=== PATIENT | male | born 1990 | race Caucasian/White ===

== ENCOUNTER 2021-06-19 21:20 | Inpatient (IN) | payer MEDICARE, MEDICAID ==
[~2021-06-19] VITALS: Ht 195.6 cm; Wt 81.0 kg
[~2021-06-19 21:20] MED LIST: GABA800T5 PO; SERT100T32 PO
--- NOTE | 2021-06-19 22:06 | NUR ---
LOOM OPERATOR APPRENTICE: PT. TO ROOM FROM LOBBY AT THIS TIME.
[2021-06-19] MEDS ORDERED: PROMETHAZINE 25 MG/ML, 1ML ONE (22:25)
[2021-06-19] MEDS ORDERED: ONDANSETRON 2MG/ML, 2ML ONE (22:25)
[2021-06-19] MEDS ORDERED: MORPHINE SULFATE 4 MG/ML, 1ML ONE (22:26)
[2021-06-19] MEDS ORDERED: PROMETHAZINE 25 MG/ML, 1ML IM ONE (22:30)
[2021-06-19] MEDS ORDERED: SODIUM CHLORIDE 0.9% 1,000ML IVBOLUS ONE (22:30)
[2021-06-19] MEDS ORDERED: MORPHINE SULFATE 4 MG/ML, 1ML IVPush PRN (22:30)
[2021-06-19] MEDS ORDERED: SODIUM CHLORIDE FLUSH 10ML SYR IVF ONE (22:30)
[2021-06-19] MEDS ORDERED: ONDANSETRON 2MG/ML, 2ML IVPush ONE (22:30)
--- NOTE | 2021-06-19 23:08 | NUR ---
PATIENT STATES HE NOTICED SCROTAL SWELLING THIS MORNING WHEN HE GOT OUT OF THE SHOWER AND STATED HE STARTED TO FEEL NAUSEATED AT THAT TIME. PATIENT HAS NOT HAD ANY APPITITE TO DAY.
[2021-06-19 23:28] LABS: BASOPHILS % (AUTO) 0 % (0-1); EOSINOPHILS % (AUTO) 0 % (1-7); LYMPHOCYTES % (AUTO) 4 % (22-44); MEAN CORPUSCULAR HEMOGLOBIN 27.8 pg (27.5-34.5); MEAN CORPUSCULAR HGB CONC 32.8 g/dL (33.2-36.2); MONOCYTES % (AUTO) 7 % (2-9); NEUTROPHILS % (AUTO) 89 % (42-75); PLATELET COUNT 242 x10^3/uL (130-400); RED BLOOD COUNT 4.73 x10^6/uL (4.38-5.82); RED CELL DISTRIBUTION WIDTH 12.9 % (9.4-14.8)
[2021-06-19 23:41] LABS: ALANINE AMINOTRANSFERASE 16 U/L (12-78); ALBUMIN 2.5 g/dL (3.4-5.0); ANION GAP 5 mmol/L (5-15); CALCIUM 8.5 mg/dL (8.5-10.1); CHLORIDE 105 mmol/L (98-107); CREATININE 0.55 mg/dL (0.7-1.3)
[2021-06-19 23:43] LABS: ALKALINE PHOSPHATASE 104 U/L (45-117); BILIRUBIN,TOTAL 1.2 mg/dL (0.2-1.0); TOTAL PROTEIN 8.1 g/dL (6.4-8.2)
[2021-06-20] MEDS ORDERED: CEFTRIAXONE 1,000 MG in DEXTROSE 5% 50 ML IVPB SCH (00:30)
[2021-06-20] MEDS ORDERED: VANCOMYCIN PER PHARMACY MC PRN ×3 (00:30→18:00)
--- NOTE | 2021-06-20 00:40 | NUR ---
Patient has catheter in place to obtain urine. Unable to get any urine out at this time. Catheter remains in place.
[2021-06-20] MEDS ORDERED: SODIUM CHLORIDE 0.9% 1,000ML IVBOLUS ONE (01:00)
[2021-06-20] MEDS ORDERED: PHARMACOKINETIC CONSULTATION MC ONE (01:00)
--- NOTE | 2021-06-20 01:00 | NUR ---
Preceptor RN: Still unable to get urine from catheter. Notified ERP. Second liter of NS ordered. Upon checking IV, first liter bolus of NS did not infuse due to patient's arm position. Advised patient to keep arm straight. Second bolus held until the first completes. Initiated antibiotics per jan. Notifed primary RN.
[2021-06-20] MEDS ORDERED: VANCOMYCIN 1,800 MG in SODIUM CHLORIDE 0.9% 250 ML IV ONE (01:30)
--- NOTE | 2021-06-20 02:03 | NUR ---
PATIENT SLEEPING ON GURNEY WHEN RN ENTERED ROOM. PATIENT STILL UNABLE TO PRODUCE URINE. BOLUS RUNNING, AND REMINDED PATIENT TO KEEP HIS ARM STRAIGHT. PATIENT PLACED ON 2L OXYGEN VIA NC DUE TO O2 SATS DROPPING WHEN PT IS ASLEEP.
--- NOTE | 2021-06-20 02:15 | NUR ---
Pt to be admitted to MED/SURG, room 444. Report called to ROCHELLE.
[2021-06-20] MEDS ORDERED: ACETAMINOPHEN 325 MG TABLET PO PRN (02:30)
[2021-06-20] MEDS ORDERED: ENALAPRILAT 1.25 MG/ML, 2ML IVPush PRN (02:30)
[2021-06-20] MEDS ORDERED: GABAPENTIN 300 MG CAPSULE PO PRN (02:30)
[2021-06-20] MEDS ORDERED: SODIUM CHLORIDE 0.9% 1,000ML IV ONE (02:30)
[2021-06-20 03:03] VITALS: BP 100/62
[2021-06-20 03:53] LABS: RED BLOOD COUNT 4.33 x10^6/uL (4.38-5.82)
[2021-06-20 03:54] LABS: MEAN CORPUSCULAR HEMOGLOBIN 28.1 pg (27.5-34.5); MEAN CORPUSCULAR HGB CONC 33.1 g/dL (33.2-36.2); MEAN PLATELET VOLUME 9.2 fL (7.4-10.4); PLATELET COUNT 245 x10^3/uL (130-400)
[2021-06-20 04:06] LABS: ANION GAP 6 mmol/L (5-15); CALCIUM 8.2 mg/dL (8.5-10.1); CHLORIDE 104 mmol/L (98-107); CREATININE 0.46 mg/dL (0.7-1.3)
[2021-06-20 04:12] LABS: MICROSCOPIC INDICATED
[2021-06-20 04:20] LABS: BAND#(MANUAL) 0.55 x10^3/uL; BANDS%(MANUAL) 3 % (0-7); LYMPH#(MANUAL) 1.64 x10^3/uL (1-3.4); LYMPHS% (MANUAL) 9 % (22-44); MONOS#(MANUAL) 0.91 x10^3/uL (0.3-2.7); MONOS% (MANUAL) 5 % (2-9); SEG#(MANUAL) 15.11 x10^3/uL (1.8-6.8); SEGS% (MANUAL) 83 % (42-75)
[2021-06-20 04:21] LABS: <PLATELET ESTIMATE> ADEQUATE; <PLT MORPHOLOGY> NORMAL PLT MORPH; <RBC MORPHOLOGY> NORMAL
[2021-06-20] MEDS: ENOXAPARIN 40 MG/0.4 ML SQ SCH (05:12)
[2021-06-20 07:20] VITALS: BP 98/60
[2021-06-20] MEDS: SODIUM CHLORIDE 0.9% 1,000 ML IV SCH ×2 (08:27→12:13)
[2021-06-20] MEDS: ONDANSETRON 2MG/ML, 2ML IVPush PRN (08:27)
[2021-06-20] MEDS: morphine SULFATE 10 MG/ML, 1ML IV PRN ×3 (08:28→21:35)
[2021-06-20] MEDS ORDERED: POTASSIUM CHLORIDE 20 MEQ TAB.ER.PRT PO ONE (09:30)
[2021-06-20] MEDS: NICOTINE 14MG/24 HR PATCH.TD24 TD SCH (12:12)
[2021-06-20 13:32] VITALS: BP 98/61
[2021-06-20] MEDS ORDERED: PHARMACOKINETIC MONITORING MC PRN (18:00)
[2021-06-20] MEDS: PIPERACILLIN/TAZO 3.375 GM in DEXTROSE 5% 50 ML IV SCH (18:22)
[2021-06-20 19:51] VITALS: BP 114/61
[2021-06-20] MEDS: VANCOMYCIN 1,500 MG in SODIUM CHLORIDE 0.9% 250 ML IV SCH (19:58)
[2021-06-21] MEDS: PIPERACILLIN/TAZO 3.375 GM in DEXTROSE 5% 50 ML IV SCH ×4 (00:27→17:44)
[2021-06-21] MEDS: OXYcodone IR 5MG TABLET PO PRN ×4 (00:47→21:58)
[2021-06-21] MEDS ORDERED: CEFTRIAXONE 1,000 MG in DEXTROSE 5% 50 ML IVPB SCH (01:00)
[2021-06-21 02:01] VITALS: BP 99/60
[2021-06-21] MEDS: ENOXAPARIN 40 MG/0.4 ML SQ SCH (04:16)
[2021-06-21] MEDS: VANCOMYCIN 1,500 MG in SODIUM CHLORIDE 0.9% 250 ML IV SCH ×3 (04:16→19:52)
[2021-06-21 07:40] VITALS: BP 98/57
[2021-06-21 07:49] LABS: BASOPHILS % (AUTO) 0 % (0-1); EOSINOPHILS % (AUTO) 2 % (1-7); LYMPHOCYTES % (AUTO) 10 % (22-44); MEAN CORPUSCULAR HGB CONC 33.2 g/dL (33.2-36.2); MEAN PLATELET VOLUME 8.7 fL (7.4-10.4); MONOCYTES % (AUTO) 8 % (2-9); NEUTROPHILS % (AUTO) 80 % (42-75); PLATELET COUNT 201 x10^3/uL (130-400); RED BLOOD COUNT 4.12 x10^6/uL (4.38-5.82); RED CELL DISTRIBUTION WIDTH 13.2 % (9.4-14.8)
[2021-06-21 07:57] LABS: ANION GAP 10 mmol/L (5-15); CALCIUM 8.8 mg/dL (8.5-10.1); CHLORIDE 105 mmol/L (98-107)
[2021-06-21 08:06] LABS: C-REACTIVE PROTEIN, QUANT > 19.00 mg/dL (0.02-0.49); CREATININE 0.49 mg/dL (0.7-1.3)
[2021-06-21 08:25] LABS: HCT (SEDRATE) 34.8 % (39.2-51.8)
[2021-06-21] MEDS ORDERED: POTASSIUM PHOSPHATE 22 MEQ in SODIUM CHLORIDE 0.9% 500 ML IV ONE (10:00)
[2021-06-21] MEDS: morphine SULFATE 10 MG/ML, 1ML IV PRN ×2 (10:03→19:52)
[2021-06-21] MEDS: NICOTINE 14MG/24 HR PATCH.TD24 TD SCH (11:35)
[2021-06-21 13:40] VITALS: BP 103/65
[2021-06-21 19:56] VITALS: BP 101/57
[2021-06-22] MEDS: PIPERACILLIN/TAZO 3.375 GM in DEXTROSE 5% 50 ML IV SCH ×5 (00:36→23:50)
[2021-06-22 01:00] VITALS: BP 107/65
[2021-06-22] MEDS: morphine SULFATE 10 MG/ML, 1ML IV PRN ×5 (01:13→16:21)
[2021-06-22 03:19] LABS: BASOPHILS % (AUTO) 0 % (0-1); EOSINOPHILS % (AUTO) 1 % (1-7); LYMPHOCYTES % (AUTO) 7 % (22-44); MEAN CORPUSCULAR HEMOGLOBIN 27.9 pg (27.5-34.5); MEAN CORPUSCULAR HGB CONC 33.3 g/dL (33.2-36.2); MEAN PLATELET VOLUME 8.7 fL (7.4-10.4); MONOCYTES % (AUTO) 8 % (2-9); NEUTROPHILS % (AUTO) 85 % (42-75); PLATELET COUNT 194 x10^3/uL (130-400); RED BLOOD COUNT 4.07 x10^6/uL (4.38-5.82); RED CELL DISTRIBUTION WIDTH 13.3 % (9.4-14.8)
[2021-06-22] MEDS: VANCOMYCIN 1,500 MG in SODIUM CHLORIDE 0.9% 250 ML IV SCH ×3 (03:28→20:34)
[2021-06-22] MEDS ORDERED: MELATONIN 5 MG TABLET PO PRN (03:30)
[2021-06-22 03:31] LABS: ANION GAP 9 mmol/L (5-15); CALCIUM 8.9 mg/dL (8.5-10.1); CHLORIDE 102 mmol/L (98-107); CREATININE 0.59 mg/dL (0.7-1.3)
[2021-06-22 03:32] LABS: VANCOMYCIN,TROUGH 18.4 mcg/mL (5.0-10.0)
[2021-06-22] MEDS: ENOXAPARIN 40 MG/0.4 ML SQ SCH (05:36)
[2021-06-22 07:16] VITALS: BP 103/62
[2021-06-22] MEDS ORDERED: POTASSIUM CHLORIDE 40 MEQ in SODIUM CHLORIDE 0.9% 500 ML IV ONE (08:30)
[2021-06-22] MEDS ORDERED: MAGNESIUM SULFATE PMX 2GM/50ML 50 ML IV ONE (08:30)
[2021-06-22] MEDS: NICOTINE 14MG/24 HR PATCH.TD24 TD SCH (12:12)
[2021-06-22] MEDS ORDERED: POTASSIUM PHOSPHATE 22 MEQ in SODIUM CHLORIDE 0.9% 500 ML IV ONE (12:30)
[2021-06-22] MEDS ORDERED: KETOROLAC 30 MG/1 ML IVPush ONE (13:00)
[2021-06-22 14:08] VITALS: BP 98/62
[2021-06-22] MEDS: OXYcodone IR 5MG TABLET PO PRN (19:36)
[2021-06-22 19:57] VITALS: BP 94/58
[2021-06-23 00:04] VITALS: BP 96/60
[2021-06-23] MEDS: OXYcodone IR 5MG TABLET PO PRN ×4 (00:11→20:31)
[2021-06-23] MEDS: VANCOMYCIN 1,500 MG in SODIUM CHLORIDE 0.9% 250 ML IV SCH (04:29)
[2021-06-23 05:34] LABS: BASOPHILS % (AUTO) 0 % (0-1); EOSINOPHILS % (AUTO) 4 % (1-7); LYMPHOCYTES % (AUTO) 10 % (22-44); MEAN CORPUSCULAR HEMOGLOBIN 28.3 pg (27.5-34.5); MEAN CORPUSCULAR HGB CONC 33.9 g/dL (33.2-36.2); MEAN PLATELET VOLUME 8.9 fL (7.4-10.4); MONOCYTES % (AUTO) 12 % (2-9); NEUTROPHILS % (AUTO) 74 % (42-75); PLATELET COUNT 205 x10^3/uL (130-400); RED BLOOD COUNT 4.02 x10^6/uL (4.38-5.82); RED CELL DISTRIBUTION WIDTH 13.1 % (9.4-14.8)
[2021-06-23 05:46] LABS: CHLORIDE 105 mmol/L (98-107)
[2021-06-23 05:51] LABS: ANION GAP 7 mmol/L (5-15); CALCIUM 9.3 mg/dL (8.5-10.1); CREATININE 1.55 mg/dL (0.7-1.3)
[2021-06-23] MEDS: ENOXAPARIN 40 MG/0.4 ML SQ SCH (05:54)
[2021-06-23 07:00] VITALS: BP 93/52
[2021-06-23] MEDS: ONDANSETRON 2MG/ML, 2ML IVPush PRN (08:46)
[2021-06-23] MEDS: morphine SULFATE 10 MG/ML, 1ML IV PRN ×2 (09:45→10:32)
[2021-06-23] MEDS: AMPICILLIN/SULBACTAM 3 GM in SODIUM CHLORIDE 0.9% 100 ML IV SCH ×3 (09:46→22:22)
[2021-06-23] MEDS: NICOTINE 14MG/24 HR PATCH.TD24 TD SCH (10:32)
[2021-06-23 12:50] VITALS: BP 97/61
[2021-06-23 19:26] VITALS: BP 99/61
[2021-06-24] MEDS: OXYcodone IR 5MG TABLET PO PRN ×4 (00:41→22:45)
[2021-06-24 00:46] VITALS: BP 99/63
[2021-06-24] MEDS: ENOXAPARIN 40 MG/0.4 ML SQ SCH (05:15)
[2021-06-24] MEDS: AMPICILLIN/SULBACTAM 3 GM in SODIUM CHLORIDE 0.9% 100 ML IV SCH (05:15)
[2021-06-24 05:27] LABS: BASOPHILS % (AUTO) 1 % (0-1); EOSINOPHILS % (AUTO) 4 % (1-7); LYMPHOCYTES % (AUTO) 10 % (22-44); MEAN CORPUSCULAR HEMOGLOBIN 27.8 pg (27.5-34.5); MEAN CORPUSCULAR HGB CONC 32.8 g/dL (33.2-36.2); MONOCYTES % (AUTO) 13 % (2-9); NEUTROPHILS % (AUTO) 73 % (42-75); PLATELET COUNT 235 x10^3/uL (130-400); RED BLOOD COUNT 4.12 x10^6/uL (4.38-5.82); RED CELL DISTRIBUTION WIDTH 13.2 % (9.4-14.8)
[2021-06-24] MEDS: ONDANSETRON 2MG/ML, 2ML IVPush PRN (05:31)
[2021-06-24 05:34] LABS: ANION GAP 7 mmol/L (5-15); CALCIUM 8.9 mg/dL (8.5-10.1); CHLORIDE 105 mmol/L (98-107); CREATININE 3.06 mg/dL (0.7-1.3)
[2021-06-24 07:42] VITALS: BP 94/51
[2021-06-24] MEDS ORDERED: SODIUM CHLORIDE 0.9%, 500ML IVBOLUS ONE (09:30)
[2021-06-24] MEDS: BISACODYL 10 MG SUPP PR PRN (09:49)
[2021-06-24] MEDS: HEPARIN 5,000 UNITS/ML, 1ML SQ SCH ×2 (09:50→18:15)
[2021-06-24] MEDS: PROMETHAZINE 25 MG/ML, 1ML IM PRN (10:10)
[2021-06-24] MEDS: ALBUMIN HUMAN 25% 100 ML IV SCH ×3 (11:28→21:30)
[2021-06-24 12:26] LABS: MICROSCOPIC INDICATED
[2021-06-24 12:35] LABS: SODIUM,URINE RANDOM 28 mmol/L
[2021-06-24 12:58] VITALS: BP 96/58
[2021-06-24 12:58] LABS: CREATININE,URINE RANDOM < 13.00 mg/dL
[2021-06-24] MEDS: CEFTRIAXONE 1,000 MG in DEXTROSE 5% 50 ML IVPB SCH (13:32)
[2021-06-24] MEDS: NICOTINE 14MG/24 HR PATCH.TD24 TD SCH (13:32)
[2021-06-24 22:06] VITALS: BP 108/67
[2021-06-25] MEDS: HEPARIN 5,000 UNITS/ML, 1ML SQ SCH ×3 (02:00→18:09)
[2021-06-25 02:31] VITALS: BP 103/61
[2021-06-25] MEDS: ALBUMIN HUMAN 25% 100 ML IV SCH ×2 (03:30→19:58)
[2021-06-25] MEDS: OXYcodone IR 5MG TABLET PO PRN ×4 (04:11→15:59)
[2021-06-25 07:11] VITALS: BP 118/67
[2021-06-25 07:20] LABS: CALCIUM 8.9 mg/dL (8.5-10.1); CHLORIDE 106 mmol/L (98-107)
[2021-06-25 07:24] LABS: ANION GAP 7 mmol/L (5-15); CREATININE 4.14 mg/dL (0.7-1.3)
[2021-06-25] MEDS: PROMETHAZINE 25 MG/ML, 1ML IM PRN (07:53)
[2021-06-25] MEDS ORDERED: SODIUM CHLORIDE 0.9%, 500ML IVBOLUS ONE (08:00)
[2021-06-25] MEDS: NICOTINE 14MG/24 HR PATCH.TD24 TD SCH (11:50)
[2021-06-25] MEDS: SODIUM CHLORIDE 0.9% 1,000 ML IV SCH ×2 (12:21→23:44)
[2021-06-25] MEDS: CEFTRIAXONE 1,000 MG in DEXTROSE 5% 50 ML IVPB SCH (12:23)
[2021-06-25 12:52] VITALS: BP 94/58
[2021-06-25] MEDS: ONDANSETRON 2MG/ML, 2ML IVPush PRN (15:59)
[2021-06-25 20:14] VITALS: BP 116/72
[2021-06-26] MEDS: ALBUMIN HUMAN 25% 100 ML IV SCH ×2 (01:33→08:46)
[2021-06-26 01:37] VITALS: BP 116/64
[2021-06-26] MEDS: HEPARIN 5,000 UNITS/ML, 1ML SQ SCH ×3 (02:20→18:17)
[2021-06-26] MEDS: NYSTATIN 500,000 UNITS/5 ML UDC PO SCH ×4 (05:43→21:56)
[2021-06-26] MEDS: OXYcodone IR 5MG TABLET PO PRN ×4 (05:43→21:56)
[2021-06-26] MEDS: ONDANSETRON 2MG/ML, 2ML IVPush PRN ×3 (05:44→19:54)
[2021-06-26 06:05] LABS: BASOPHILS % (AUTO) 1 % (0-1); EOSINOPHILS % (AUTO) 3 % (1-7); LYMPHOCYTES % (AUTO) 16 % (22-44); MEAN CORPUSCULAR HGB CONC 33.3 g/dL (33.2-36.2); MEAN PLATELET VOLUME 8.4 fL (7.4-10.4); MONOCYTES % (AUTO) 15 % (2-9); NEUTROPHILS % (AUTO) 66 % (42-75); PLATELET COUNT 268 x10^3/uL (130-400); RED BLOOD COUNT 3.75 x10^6/uL (4.38-5.82); RED CELL DISTRIBUTION WIDTH 13.2 % (9.4-14.8)
[2021-06-26 06:10] LABS: ALBUMIN 2.2 g/dL (3.4-5.0); ANION GAP 8 mmol/L (5-15); CALCIUM 8.9 mg/dL (8.5-10.1); CHLORIDE 109 mmol/L (98-107); CREATININE 4.47 mg/dL (0.7-1.3)
[2021-06-26] MEDS: SODIUM CHLORIDE 0.9% 1,000 ML IV SCH (11:18)
[2021-06-26] MEDS: CEFTRIAXONE 1,000 MG in DEXTROSE 5% 50 ML IVPB SCH (11:19)
[2021-06-26] MEDS: NICOTINE 14MG/24 HR PATCH.TD24 TD SCH (11:20)
[2021-06-26 12:50] VITALS: BP 119/66
[2021-06-26] MEDS: LACTATED RINGERS 1,000 ML IV SCH ×2 (12:54→23:10)
[2021-06-26] MEDS: PROMETHAZINE 25 MG/ML, 1ML IM PRN (15:23)
[2021-06-26 19:33] VITALS: BP 122/76
[2021-06-27 00:17] VITALS: BP 109/67
[2021-06-27] MEDS: OXYcodone IR 5MG TABLET PO PRN ×5 (02:02→19:52)
[2021-06-27] MEDS: HEPARIN 5,000 UNITS/ML, 1ML SQ SCH ×3 (02:04→16:24)
[2021-06-27] MEDS: NYSTATIN 500,000 UNITS/5 ML UDC PO SCH ×4 (05:50→19:47)
[2021-06-27] MEDS: ONDANSETRON 2MG/ML, 2ML IVPush PRN ×2 (06:20→19:44)
[2021-06-27 06:28] LABS: BASOPHILS % (AUTO) 0 % (0-1); EOSINOPHILS % (AUTO) 4 % (1-7); LYMPHOCYTES % (AUTO) 20 % (22-44); MEAN CORPUSCULAR HGB CONC 33.8 g/dL (33.2-36.2); MEAN PLATELET VOLUME 8.5 fL (7.4-10.4); MONOCYTES % (AUTO) 14 % (2-9); NEUTROPHILS % (AUTO) 62 % (42-75); PLATELET COUNT 319 x10^3/uL (130-400); RED BLOOD COUNT 4.01 x10^6/uL (4.38-5.82); RED CELL DISTRIBUTION WIDTH 13.4 % (9.4-14.8)
[2021-06-27 06:36] VITALS: BP 113/65
[2021-06-27 06:46] LABS: ANION GAP 8 mmol/L (5-15); CALCIUM 9.4 mg/dL (8.5-10.1); CHLORIDE 108 mmol/L (98-107); CREATININE 4.51 mg/dL (0.7-1.3)
[2021-06-27] MEDS: LACTATED RINGERS 1,000 ML IV SCH ×2 (10:12→10:29)
[2021-06-27] MEDS: CEFTRIAXONE 1,000 MG in DEXTROSE 5% 50 ML IVPB SCH (10:13)
[2021-06-27] MEDS: NICOTINE 14MG/24 HR PATCH.TD24 TD SCH (10:14)
[2021-06-27] MEDS: PROMETHAZINE 25 MG/ML, 1ML IM PRN (11:43)
[2021-06-27 13:05] VITALS: BP 118/75
[2021-06-27 18:59] VITALS: BP 121/74
[2021-06-27] MEDS: DOCUSATE 100 MG CAPSULE PO SCH (19:45)
[2021-06-28] MEDS: OXYcodone IR 5MG TABLET PO PRN ×4 (00:17→20:50)
[2021-06-28 00:47] VITALS: BP 106/68
[2021-06-28] MEDS: HEPARIN 5,000 UNITS/ML, 1ML SQ SCH ×3 (02:00→18:27)
[2021-06-28] MEDS: LACTATED RINGERS 1,000 ML IV SCH ×2 (02:28→20:49)
[2021-06-28] MEDS: NYSTATIN 500,000 UNITS/5 ML UDC PO SCH ×4 (06:06→20:50)
[2021-06-28] MEDS: ONDANSETRON 2MG/ML, 2ML IVPush PRN ×2 (06:06→20:50)
[2021-06-28 07:11] LABS: BASOPHILS % (AUTO) 1 % (0-1); EOSINOPHILS % (AUTO) 5 % (1-7); LYMPHOCYTES % (AUTO) 23 % (22-44); MEAN CORPUSCULAR HEMOGLOBIN 27.8 pg (27.5-34.5); MEAN CORPUSCULAR HGB CONC 33.3 g/dL (33.2-36.2); MEAN PLATELET VOLUME 8.4 fL (7.4-10.4); MONOCYTES % (AUTO) 15 % (2-9); NEUTROPHILS % (AUTO) 57 % (42-75); PLATELET COUNT 351 x10^3/uL (130-400); RED CELL DISTRIBUTION WIDTH 13.4 % (9.4-14.8)
[2021-06-28 07:13] VITALS: BP 124/62
[2021-06-28 07:15] LABS: ANION GAP 8 mmol/L (5-15); CALCIUM 9.2 mg/dL (8.5-10.1); CHLORIDE 109 mmol/L (98-107); CREATININE 4.25 mg/dL (0.7-1.3)
[2021-06-28] MEDS: PROMETHAZINE 25 MG/ML, 1ML IM PRN ×2 (07:50→22:49)
[2021-06-28] MEDS: DOCUSATE 100 MG CAPSULE PO SCH ×2 (09:00→20:50)
[2021-06-28] MEDS: CEFTRIAXONE 1,000 MG in DEXTROSE 5% 50 ML IVPB SCH (11:42)
[2021-06-28] MEDS: NICOTINE 14MG/24 HR PATCH.TD24 TD SCH (11:43)
[2021-06-28 12:07] VITALS: BP 129/77
[2021-06-28] MEDS ORDERED: PROCHLORPERAZINE 10MG TABLET PO PRN (13:30)
[2021-06-28] MEDS: BISACODYL 10 MG SUPP PR PRN (14:32)
[2021-06-28] MEDS ORDERED: GABAPENTIN 300 MG CAPSULE PO PRN (20:00)
[2021-06-28 20:13] VITALS: BP 132/80
[2021-06-28] MEDS: morphine SULFATE 10 MG/ML, 1ML IV PRN (22:50)
[2021-06-29 02:17] VITALS: BP 134/79
[2021-06-29] MEDS: HEPARIN 5,000 UNITS/ML, 1ML SQ SCH ×4 (02:45→17:12)
[2021-06-29] MEDS: NYSTATIN 500,000 UNITS/5 ML UDC PO SCH ×5 (05:21→20:27)
[2021-06-29] MEDS: OXYcodone IR 5MG TABLET PO PRN ×3 (05:31→22:00)
[2021-06-29] MEDS: ONDANSETRON 2MG/ML, 2ML IVPush PRN ×4 (05:49→23:34)
[2021-06-29 07:33] LABS: BASOPHILS % (AUTO) 1 % (0-1); EOSINOPHILS % (AUTO) 5 % (1-7); LYMPHOCYTES % (AUTO) 21 % (22-44); MEAN CORPUSCULAR HEMOGLOBIN 27.4 pg (27.5-34.5); MEAN CORPUSCULAR HGB CONC 33.2 g/dL (33.2-36.2); MEAN PLATELET VOLUME 8.3 fL (7.4-10.4); MONOCYTES % (AUTO) 14 % (2-9); NEUTROPHILS % (AUTO) 60 % (42-75); PLATELET COUNT 361 x10^3/uL (130-400); RED BLOOD COUNT 3.97 x10^6/uL (4.38-5.82); RED CELL DISTRIBUTION WIDTH 13.6 % (9.4-14.8)
[2021-06-29 07:35] LABS: ANION GAP 6 mmol/L (5-15); CHLORIDE 109 mmol/L (98-107)
[2021-06-29 07:36] LABS: CREATININE 3.86 mg/dL (0.7-1.3)
[2021-06-29 09:59] VITALS: BP 119/72
[2021-06-29] MEDS: DOCUSATE 100 MG CAPSULE PO SCH ×2 (10:10→20:28)
[2021-06-29] MEDS: CEFTRIAXONE 1,000 MG in DEXTROSE 5% 50 ML IVPB SCH (10:12)
[2021-06-29] MEDS ORDERED: POTASSIUM CHLORIDE 20 MEQ TAB.ER.PRT PO ONE (10:30)
[2021-06-29] MEDS: PROMETHAZINE 25 MG/ML, 1ML IM PRN (10:58)
[2021-06-29] MEDS: NICOTINE 14MG/24 HR PATCH.TD24 TD SCH (12:03)
[2021-06-29] MEDS ORDERED: MAGNESIUM HYDROXIDE 8%, 30ML UDC PO PRN (13:00)
[2021-06-29] MEDS ORDERED: POLYETHYLENE GLYCOL 17 GM PACKET PO PRN (13:00)
[2021-06-29 15:37] VITALS: BP 145/65
[2021-06-29 21:24] VITALS: BP 137/72
[2021-06-29] MEDS: BISACODYL 10 MG SUPP PR PRN (22:26)
[2021-06-30] MEDS: HEPARIN 5,000 UNITS/ML, 1ML SQ SCH ×3 (01:31→18:10)
[2021-06-30 03:08] VITALS: BP 130/77
[2021-06-30 05:31] LABS: BASOPHILS % (AUTO) 1 % (0-1); EOSINOPHILS % (AUTO) 4 % (1-7); LYMPHOCYTES % (AUTO) 22 % (22-44); MEAN CORPUSCULAR HEMOGLOBIN 27.6 pg (27.5-34.5); MEAN CORPUSCULAR HGB CONC 33.5 g/dL (33.2-36.2); MEAN PLATELET VOLUME 8.1 fL (7.4-10.4); MONOCYTES % (AUTO) 11 % (2-9); NEUTROPHILS % (AUTO) 62 % (42-75); PLATELET COUNT 373 x10^3/uL (130-400); RED BLOOD COUNT 4.03 x10^6/uL (4.38-5.82); RED CELL DISTRIBUTION WIDTH 13.6 % (9.4-14.8)
[2021-06-30 05:45] LABS: ANION GAP 8 mmol/L (5-15); CALCIUM 9.4 mg/dL (8.5-10.1); CHLORIDE 109 mmol/L (98-107)
[2021-06-30 05:56] LABS: ALANINE AMINOTRANSFERASE 11 U/L (12-78); ALBUMIN 2.2 g/dL (3.4-5.0); ALKALINE PHOSPHATASE 66 U/L (45-117); BILIRUBIN,TOTAL 0.5 mg/dL (0.2-1.0); CREATININE 3.55 mg/dL (0.7-1.3); TOTAL PROTEIN 7.2 g/dL (6.4-8.2)
[2021-06-30] MEDS: NYSTATIN 500,000 UNITS/5 ML UDC PO SCH ×4 (06:00→22:09)
[2021-06-30 07:23] VITALS: BP 145/85
[2021-06-30] MEDS: DOCUSATE 100 MG CAPSULE PO SCH ×2 (09:01→19:20)
[2021-06-30] MEDS: CEFTRIAXONE 1,000 MG in DEXTROSE 5% 50 ML IVPB SCH (09:02)
[2021-06-30] MEDS: ONDANSETRON 2MG/ML, 2ML IVPush PRN ×2 (09:05→15:50)
[2021-06-30] MEDS: NICOTINE 14MG/24 HR PATCH.TD24 TD SCH (12:08)
[2021-06-30] MEDS: SODIUM CHLORIDE 0.9% 1,000 ML IV SCH ×2 (12:30→22:09)
[2021-06-30] MEDS: PANTOPRAZOLE 40 MG IV IVPush SCH (12:37)
[2021-06-30 13:05] VITALS: BP 127/77
[2021-06-30] MEDS: PROMETHAZINE 25 MG/ML, 1ML IM PRN (14:22)
[2021-06-30 21:51] VITALS: BP 159/96
[2021-07-01] MEDS: PANTOPRAZOLE 40 MG IV IVPush SCH (00:27)
[2021-07-01] MEDS: HEPARIN 5,000 UNITS/ML, 1ML SQ SCH ×2 (02:00→10:06)
[2021-07-01 02:11] VITALS: BP 144/82
[2021-07-01] MEDS: ONDANSETRON 2MG/ML, 2ML IVPush PRN ×3 (04:37→18:50)
[2021-07-01 04:44] LABS: BASOPHILS % (AUTO) 1 % (0-1); EOSINOPHILS % (AUTO) 4 % (1-7); LYMPHOCYTES % (AUTO) 24 % (22-44); MEAN CORPUSCULAR HEMOGLOBIN 27.8 pg (27.5-34.5); MEAN CORPUSCULAR HGB CONC 33.1 g/dL (33.2-36.2); MEAN PLATELET VOLUME 8.2 fL (7.4-10.4); MONOCYTES % (AUTO) 11 % (2-9); NEUTROPHILS % (AUTO) 60 % (42-75); PLATELET COUNT 360 x10^3/uL (130-400); RED BLOOD COUNT 4.13 x10^6/uL (4.38-5.82); RED CELL DISTRIBUTION WIDTH 13.5 % (9.4-14.8)
[2021-07-01 04:51] LABS: ALANINE AMINOTRANSFERASE 10 U/L (12-78); ALBUMIN 2.2 g/dL (3.4-5.0); ANION GAP 10 mmol/L (5-15); CALCIUM 8.8 mg/dL (8.5-10.1); CHLORIDE 109 mmol/L (98-107); CREATININE 2.94 mg/dL (0.7-1.3)
[2021-07-01 04:53] LABS: ALKALINE PHOSPHATASE 65 U/L (45-117); BILIRUBIN,TOTAL 0.4 mg/dL (0.2-1.0); TOTAL PROTEIN 7.3 g/dL (6.4-8.2)
[2021-07-01] MEDS: NYSTATIN 500,000 UNITS/5 ML UDC PO SCH ×4 (06:00→21:15)
[2021-07-01] MEDS ORDERED: GADOTERATE 10 MMOL/20ML SYR ONE (07:54)
[2021-07-01 08:00] VITALS: BP 155/87
[2021-07-01] MEDS: DOCUSATE 100 MG CAPSULE PO SCH ×2 (10:03→21:15)
[2021-07-01] MEDS: SUCRALFATE 1 GM/10 ML UDC PO SCH ×3 (10:03→21:14)
[2021-07-01] MEDS: NICOTINE 14MG/24 HR PATCH.TD24 TD SCH (10:03)
[2021-07-01] MEDS: CEFTRIAXONE 1,000 MG in DEXTROSE 5% 50 ML IVPB SCH (10:05)
[2021-07-01] MEDS: MORPHINE SULFATE 4 MG/ML, 1ML IVPush PRN ×4 (11:41→22:53)
[2021-07-01] MEDS ORDERED: FENTANYL PF 100 MCG/2ML ONE (12:55)
[2021-07-01] MEDS ORDERED: MIDAZOLAM 1 MG/ML, 2ML ONE (12:56)
[2021-07-01 13:15] LABS: MICROSCOPIC AUTO
[2021-07-01 13:48] LABS: HCT (SEDRATE) 35.7 % (39.2-51.8)
[2021-07-01 14:02] LABS: TROPONIN I < 0.015 ng/mL (0.000-0.045)
[2021-07-01] MEDS: CAPSAICIN CRM 0.075%, 60GM TP SCH ×3 (14:29→20:30)
[2021-07-01] MEDS ORDERED: HEPARIN 5,000 UNITS/ML, 1ML IV ONE (14:30)
[2021-07-01 14:38] VITALS: BP 148/81
[2021-07-01] MEDS: SODIUM CHLORIDE 0.9% 1,000 ML IV SCH (15:33)
[2021-07-01 16:45] LABS: BASOPHILS % (AUTO) 1 % (0-1); EOSINOPHILS % (AUTO) 0 % (1-7); LYMPHOCYTES % (AUTO) 9 % (22-44); MEAN CORPUSCULAR HEMOGLOBIN 27.6 pg (27.5-34.5); MEAN CORPUSCULAR HGB CONC 33.1 g/dL (33.2-36.2); MEAN PLATELET VOLUME 8.2 fL (7.4-10.4); MONOCYTES % (AUTO) 8 % (2-9); NEUTROPHILS % (AUTO) 82 % (42-75); PLATELET COUNT 357 x10^3/uL (130-400); RED BLOOD COUNT 4.19 x10^6/uL (4.38-5.82); RED CELL DISTRIBUTION WIDTH 13.6 % (9.4-14.8)
[2021-07-01] MEDS: HEPARIN 25,000 UNITS/250ML PMX 250 ML IV PRN (18:37)
[2021-07-01 19:17] VITALS: BP 133/80
[2021-07-02] MEDS ORDERED: HYDROcodone/APAP 5/325 TABLET PO PRN
[2021-07-02] MEDS: LORazepam 2 MG/ML, 1ML IVPush PRN ×6 (00:06→21:56)
[2021-07-02] MEDS: HEPARIN 5,000 UNITS/ML, 1ML IV PRN ×3 (01:02→13:42)
[2021-07-02 01:14] VITALS: BP 130/79
[2021-07-02] MEDS: CAPSAICIN CRM 0.075%, 60GM TP SCH ×4 (02:30→21:40)
[2021-07-02] MEDS: NYSTATIN 500,000 UNITS/5 ML UDC PO SCH ×4 (05:52→21:40)
[2021-07-02] MEDS: SUCRALFATE 1 GM/10 ML UDC PO SCH ×4 (07:31→21:56)
[2021-07-02] MEDS: DOCUSATE 100 MG CAPSULE PO SCH ×2 (07:31→21:40)
[2021-07-02] MEDS: MORPHINE SULFATE 4 MG/ML, 1ML IVPush PRN ×4 (07:31→17:35)
[2021-07-02 07:36] LABS: ANION GAP 12 mmol/L (5-15); CALCIUM 9.1 mg/dL (8.5-10.1); CHLORIDE 109 mmol/L (98-107); CREATININE 2.31 mg/dL (0.7-1.3); IRON LEVEL 16 mcg/dL (65-175)
[2021-07-02] MEDS: ONDANSETRON 2MG/ML, 2ML IVPush PRN (07:38)
[2021-07-02 07:41] LABS: % IRON SATURATION 10 % (20-55); TOTAL IRON BINDING CAPACITY 156 mcg/dL (250-450)
[2021-07-02 08:35] VITALS: BP 137/82
[2021-07-02] MEDS: CEFTRIAXONE 1,000 MG in DEXTROSE 5% 50 ML IVPB SCH (09:54)
[2021-07-02] MEDS: NICOTINE 14MG/24 HR PATCH.TD24 TD SCH (10:29)
[2021-07-02] MEDS ORDERED: morphine SULFATE 10 MG/ML, 1ML IVPush ONE (12:15)
[2021-07-02] MEDS: HEPARIN 25,000 UNITS/250ML PMX 250 ML IV PRN (12:19)
[2021-07-02 14:25] VITALS: BP 158/98
[2021-07-02] MEDS: IRON SUCROSE COMPLEX 100MG/5ML IV SCH (14:34)
[2021-07-02] MEDS: SODIUM CHLORIDE 0.9% 1,000 ML IV SCH (15:47)
[2021-07-02 17:25] VITALS: BP 152/96
[2021-07-02 19:43] VITALS: BP 150/90
[2021-07-03 01:42] VITALS: BP 119/70
[2021-07-03] MEDS: SODIUM CHLORIDE 0.9% 1,000 ML IV SCH ×2 (02:21→13:55)
[2021-07-03] MEDS: MORPHINE SULFATE 4 MG/ML, 1ML IVPush PRN ×4 (02:26→20:22)
[2021-07-03] MEDS: ONDANSETRON 2MG/ML, 2ML IVPush PRN ×2 (02:26→15:54)
[2021-07-03] MEDS: CAPSAICIN CRM 0.075%, 60GM TP SCH ×4 (02:30→19:25)
[2021-07-03] MEDS: LORazepam 2 MG/ML, 1ML IVPush PRN ×2 (04:41→20:22)
[2021-07-03 04:52] LABS: BASOPHILS % (AUTO) 1 % (0-1); EOSINOPHILS % (AUTO) 2 % (1-7); LYMPHOCYTES % (AUTO) 11 % (22-44); MEAN CORPUSCULAR HEMOGLOBIN 27.3 pg (27.5-34.5); MEAN CORPUSCULAR HGB CONC 33.1 g/dL (33.2-36.2); MEAN PLATELET VOLUME 8.1 fL (7.4-10.4); MONOCYTES % (AUTO) 12 % (2-9); NEUTROPHILS % (AUTO) 75 % (42-75); PLATELET COUNT 284 x10^3/uL (130-400); RED BLOOD COUNT 3.83 x10^6/uL (4.38-5.82); RED CELL DISTRIBUTION WIDTH 13.7 % (9.4-14.8)
[2021-07-03 04:56] LABS: ALBUMIN 2.1 g/dL (3.4-5.0); ANION GAP 6 mmol/L (5-15); CALCIUM 8.9 mg/dL (8.5-10.1); CHLORIDE 110 mmol/L (98-107); CREATININE 1.75 mg/dL (0.7-1.3)
[2021-07-03] MEDS: NYSTATIN 500,000 UNITS/5 ML UDC PO SCH ×4 (06:21→19:25)
[2021-07-03] MEDS: SUCRALFATE 1 GM/10 ML UDC PO SCH ×4 (07:00→20:21)
[2021-07-03] MEDS: DOCUSATE 100 MG CAPSULE PO SCH ×2 (08:53→20:22)
[2021-07-03 08:54] VITALS: BP 116/75
[2021-07-03] MEDS ORDERED: LIDOCAINE 1%, 10ML ONE (10:05)
[2021-07-03] MEDS: CEFTRIAXONE 1,000 MG in DEXTROSE 5% 50 ML IVPB SCH (11:13)
[2021-07-03] MEDS: NICOTINE 14MG/24 HR PATCH.TD24 TD SCH (11:23)
[2021-07-03 13:51] VITALS: BP 127/80
[2021-07-03] MEDS: IRON SUCROSE COMPLEX 100MG/5ML IV SCH (15:35)
[2021-07-03] MEDS: NS + 20MEQ KCL 1,000 ML IV SCH (17:30)
[2021-07-03 19:36] VITALS: BP 127/83
[2021-07-04 01:46] VITALS: BP 114/68
[2021-07-04] MEDS: CAPSAICIN CRM 0.075%, 60GM TP SCH ×5 (02:30→20:17)
[2021-07-04] MEDS: NS + 20MEQ KCL 1,000 ML IV SCH (03:43)
[2021-07-04] MEDS: MORPHINE SULFATE 4 MG/ML, 1ML IVPush PRN ×3 (03:45→21:39)
[2021-07-04] MEDS: NYSTATIN 500,000 UNITS/5 ML UDC PO SCH ×5 (04:01→20:18)
[2021-07-04 04:03] LABS: BASOPHILS % (AUTO) 1 % (0-1); EOSINOPHILS % (AUTO) 4 % (1-7); LYMPHOCYTES % (AUTO) 19 % (22-44); MEAN CORPUSCULAR HEMOGLOBIN 27.7 pg (27.5-34.5); MEAN CORPUSCULAR HGB CONC 33.1 g/dL (33.2-36.2); MEAN PLATELET VOLUME 8.3 fL (7.4-10.4); MONOCYTES % (AUTO) 12 % (2-9); NEUTROPHILS % (AUTO) 65 % (42-75); PLATELET COUNT 265 x10^3/uL (130-400); RED BLOOD COUNT 3.92 x10^6/uL (4.38-5.82); RED CELL DISTRIBUTION WIDTH 14.1 % (9.4-14.8)
[2021-07-04 04:18] LABS: ANION GAP 5 mmol/L (5-15); CALCIUM 8.8 mg/dL (8.5-10.1); CHLORIDE 112 mmol/L (98-107)
[2021-07-04 04:21] LABS: ALKALINE PHOSPHATASE 72 U/L (45-117); BILIRUBIN,TOTAL 0.5 mg/dL (0.2-1.0); CREATININE 1.43 mg/dL (0.7-1.3); TOTAL PROTEIN 6.8 g/dL (6.4-8.2)
[2021-07-04 04:22] LABS: ALANINE AMINOTRANSFERASE < 6 U/L (12-78)
[2021-07-04] MEDS: SUCRALFATE 1 GM/10 ML UDC PO SCH ×4 (07:00→21:39)
[2021-07-04 07:58] VITALS: BP 125/83
[2021-07-04] MEDS: CEFTRIAXONE 1,000 MG in DEXTROSE 5% 50 ML IVPB SCH (09:59)
[2021-07-04] MEDS: DOCUSATE 100 MG CAPSULE PO SCH ×2 (09:59→20:18)
[2021-07-04] MEDS: NICOTINE 14MG/24 HR PATCH.TD24 TD SCH (10:00)
[2021-07-04 13:56] VITALS: BP 136/89
[2021-07-04] MEDS: ONDANSETRON 2MG/ML, 2ML IVPush PRN (14:18)
[2021-07-04] MEDS: IRON SUCROSE COMPLEX 100MG/5ML IV SCH (14:18)
[2021-07-04] MEDS ORDERED: NS + 20MEQ KCL 1,000 ML IV SCH (16:30)
[2021-07-04 19:16] VITALS: BP 137/91
[2021-07-04] MEDS: LORazepam 2 MG/ML, 1ML IVPush PRN (20:17)
[2021-07-05 00:23] VITALS: BP 118/78
[2021-07-05] MEDS: CAPSAICIN CRM 0.075%, 60GM TP SCH ×4 (01:49→20:15)
[2021-07-05] MEDS: NYSTATIN 500,000 UNITS/5 ML UDC PO SCH ×4 (05:40→21:00)
[2021-07-05 05:55] LABS: ALANINE AMINOTRANSFERASE 8 U/L (12-78); ANION GAP 4 mmol/L (5-15); CALCIUM 9.2 mg/dL (8.5-10.1); CHLORIDE 110 mmol/L (98-107); CREATININE 1.22 mg/dL (0.7-1.3)
[2021-07-05 05:58] LABS: ALKALINE PHOSPHATASE 68 U/L (45-117); BILIRUBIN,TOTAL 0.4 mg/dL (0.2-1.0); TOTAL PROTEIN 7.2 g/dL (6.4-8.2)
[2021-07-05 07:54] VITALS: BP 127/84
[2021-07-05] MEDS: NS + 40MEQ KCL 1,000 ML IV SCH ×2 (08:44→23:28)
[2021-07-05] MEDS: SUCRALFATE 1 GM/10 ML UDC PO SCH ×4 (08:44→20:15)
[2021-07-05] MEDS: DOCUSATE 100 MG CAPSULE PO SCH ×2 (08:45→20:15)
[2021-07-05] MEDS: ONDANSETRON 2MG/ML, 2ML IVPush PRN (08:56)
[2021-07-05] MEDS: MORPHINE SULFATE 4 MG/ML, 1ML IVPush PRN ×3 (08:59→20:15)
[2021-07-05] MEDS: CEFTRIAXONE 1,000 MG in DEXTROSE 5% 50 ML IVPB SCH (10:13)
[2021-07-05] MEDS: NICOTINE 14MG/24 HR PATCH.TD24 TD SCH (12:12)
[2021-07-05] MEDS: PROMETHAZINE 25 MG/ML, 1ML IM PRN (12:17)
[2021-07-05] MEDS: IRON SUCROSE COMPLEX 100MG/5ML IV SCH (14:21)
[2021-07-05 14:29] VITALS: BP 145/81
[2021-07-05] MEDS ORDERED: OXYcodone 5 MG/5 ML ORAL.SOL UDC PO PRN (16:30)
[2021-07-05] MEDS ORDERED: HYDROmorphone 1 MG/ML, 1ML INJ IVPush PRN (16:30)
[2021-07-05] MEDS ORDERED: PROMETHAZINE 25 MG/ML, 1ML IVPush PRN (16:30)
[2021-07-05] MEDS ORDERED: MEPERIDINE/PF 25MG/0.5ML IVPush PRN (16:30)
[2021-07-05] MEDS ORDERED: ONDANSETRON 2MG/ML, 2ML IVPush PRN (16:30)
[2021-07-05] MEDS ORDERED: FENTANYL PF 100 MCG/2ML IV PRN (16:30)
[2021-07-05] MEDS ORDERED: HYDROcodone/APAP 7.5-325MG/15ML UDC PO PRN (16:30)
[2021-07-05] MEDS ORDERED: CHLORHEXIDINE 15 ML UDC ONE (16:55)
[2021-07-05] MEDS ORDERED: CHLORHEXIDINE 15 ML UDC PO ONE (17:00)
[2021-07-05] MEDS ORDERED: MIDAZOLAM 1 MG/ML, 2ML ONE (17:06)
[2021-07-05] MEDS ORDERED: FENTANYL PF 100 MCG/2ML ONE ×2 (17:07→18:55)
[2021-07-05] MEDS ORDERED: BUPIVACAINE/PF 0.25% ONE (17:09)
[2021-07-05] MEDS ORDERED: PROPOFOL 10 MG/ML, 20ML ONE (17:36)
[2021-07-05] MEDS ORDERED: ONDANSETRON 2MG/ML, 2ML ONE (17:36)
[2021-07-05] MEDS ORDERED: HYDROcodone/APAP 7.5-325MG/15ML UDC ONE (18:39)
[2021-07-05 20:00] VITALS: BP 144/82
[2021-07-05 21:25] VITALS: BP 151/91
[2021-07-06 00:04] VITALS: BP 122/77
[2021-07-06] MEDS: CAPSAICIN CRM 0.075%, 60GM TP SCH ×4 (02:30→20:30)
[2021-07-06 04:23] VITALS: BP 121/80
[2021-07-06] MEDS: MORPHINE SULFATE 4 MG/ML, 1ML IVPush PRN ×4 (04:32→21:01)
[2021-07-06 04:42] LABS: BASOPHILS % (AUTO) 1 % (0-1); EOSINOPHILS % (AUTO) 6 % (1-7); LYMPHOCYTES % (AUTO) 28 % (22-44); MEAN CORPUSCULAR HEMOGLOBIN 27.2 pg (27.5-34.5); MEAN PLATELET VOLUME 8.6 fL (7.4-10.4); MONOCYTES % (AUTO) 11 % (2-9); NEUTROPHILS % (AUTO) 55 % (42-75); PLATELET COUNT 258 x10^3/uL (130-400); RED BLOOD COUNT 3.91 x10^6/uL (4.38-5.82); RED CELL DISTRIBUTION WIDTH 13.4 % (9.4-14.8)
[2021-07-06 04:45] LABS: ALBUMIN 2.1 g/dL (3.4-5.0); ANION GAP 4 mmol/L (5-15); CALCIUM 8.8 mg/dL (8.5-10.1); CHLORIDE 111 mmol/L (98-107)
[2021-07-06 04:47] LABS: CREATININE 1.08 mg/dL (0.7-1.3)
[2021-07-06] MEDS: NYSTATIN 500,000 UNITS/5 ML UDC PO SCH ×4 (06:00→21:00)
[2021-07-06] MEDS: SUCRALFATE 1 GM/10 ML UDC PO SCH ×4 (06:02→21:00)
[2021-07-06 09:20] VITALS: BP 151/96
[2021-07-06] MEDS: DOCUSATE 100 MG CAPSULE PO SCH ×2 (10:01→21:00)
[2021-07-06] MEDS: NICOTINE 14MG/24 HR PATCH.TD24 TD SCH (10:02)
[2021-07-06] MEDS: ONDANSETRON 2MG/ML, 2ML IVPush PRN ×3 (10:02→22:25)
[2021-07-06] MEDS: CEFTRIAXONE 1,000 MG in DEXTROSE 5% 50 ML IVPB SCH (11:39)
[2021-07-06] MEDS: NS + 40MEQ KCL 1,000 ML IV SCH (11:40)
[2021-07-06 15:46] VITALS: BP 158/97
[2021-07-06] MEDS: IRON SUCROSE COMPLEX 100MG/5ML IV SCH (16:02)
[2021-07-06 21:48] VITALS: BP 143/92
[2021-07-06 22:26] VITALS: BP 147/88
[2021-07-07] MEDS: PROMETHAZINE 25 MG/ML, 1ML IM PRN (00:08)
[2021-07-07] MEDS: CAPSAICIN CRM 0.075%, 60GM TP SCH ×4 (01:43→19:49)
[2021-07-07] MEDS: NS + 40MEQ KCL 1,000 ML IV SCH ×3 (01:43→23:23)
[2021-07-07] MEDS: NYSTATIN 500,000 UNITS/5 ML UDC PO SCH ×4 (01:43→19:50)
[2021-07-07 01:55] VITALS: BP 119/78
[2021-07-07 04:17] LABS: BASOPHILS % (AUTO) 1 % (0-1); EOSINOPHILS % (AUTO) 6 % (1-7); LYMPHOCYTES % (AUTO) 25 % (22-44); MEAN CORPUSCULAR HEMOGLOBIN 27.7 pg (27.5-34.5); MEAN CORPUSCULAR HGB CONC 33.7 g/dL (33.2-36.2); MEAN PLATELET VOLUME 8.7 fL (7.4-10.4); MONOCYTES % (AUTO) 9 % (2-9); NEUTROPHILS % (AUTO) 60 % (42-75); PLATELET COUNT 276 x10^3/uL (130-400); RED BLOOD COUNT 3.95 x10^6/uL (4.38-5.82); RED CELL DISTRIBUTION WIDTH 13.4 % (9.4-14.8)
[2021-07-07 04:21] LABS: ALBUMIN 2.2 g/dL (3.4-5.0); ANION GAP 3 mmol/L (5-15); CHLORIDE 110 mmol/L (98-107)
[2021-07-07 04:24] LABS: CREATININE 0.83 mg/dL (0.7-1.3)
[2021-07-07 04:25] LABS: ALANINE AMINOTRANSFERASE 8 U/L (12-78); ALKALINE PHOSPHATASE 63 U/L (45-117); BILIRUBIN,TOTAL 0.4 mg/dL (0.2-1.0); TOTAL PROTEIN 7.5 g/dL (6.4-8.2)
[2021-07-07] MEDS: SUCRALFATE 1 GM/10 ML UDC PO SCH ×4 (06:19→20:36)
[2021-07-07 10:08] VITALS: BP 155/96
[2021-07-07] MEDS: NICOTINE 14MG/24 HR PATCH.TD24 TD SCH (10:16)
[2021-07-07] MEDS: DOCUSATE 100 MG CAPSULE PO SCH ×2 (10:16→20:36)
[2021-07-07] MEDS: CEFTRIAXONE 1,000 MG in DEXTROSE 5% 50 ML IVPB SCH (10:16)
[2021-07-07] MEDS: ONDANSETRON 2MG/ML, 2ML IVPush PRN ×2 (12:59→18:24)
[2021-07-07] MEDS: MORPHINE SULFATE 4 MG/ML, 1ML IVPush PRN ×4 (12:59→21:40)
[2021-07-07 13:55] VITALS: BP 151/96
[2021-07-07 20:34] VITALS: BP 132/81
[2021-07-08] MEDS: CAPSAICIN CRM 0.075%, 60GM TP SCH ×4 (00:40→20:30)
[2021-07-08 00:50] VITALS: BP 147/87
[2021-07-08] MEDS: BISACODYL 10 MG SUPP PR PRN (04:54)
[2021-07-08] MEDS: NYSTATIN 500,000 UNITS/5 ML UDC PO SCH ×4 (05:16→20:32)
[2021-07-08 05:17] LABS: ALANINE AMINOTRANSFERASE 10 U/L (12-78); ALBUMIN 2.6 g/dL (3.4-5.0); ANION GAP 4 mmol/L (5-15); CALCIUM 9.3 mg/dL (8.5-10.1); CHLORIDE 109 mmol/L (98-107); CREATININE 0.78 mg/dL (0.7-1.3)
[2021-07-08 05:19] LABS: ALKALINE PHOSPHATASE 66 U/L (45-117); BILIRUBIN,TOTAL 0.4 mg/dL (0.2-1.0); TOTAL PROTEIN 7.8 g/dL (6.4-8.2)
[2021-07-08 05:21] LABS: BASOPHILS % (AUTO) 1 % (0-1); EOSINOPHILS % (AUTO) 6 % (1-7); LYMPHOCYTES % (AUTO) 29 % (22-44); MEAN CORPUSCULAR HEMOGLOBIN 27.3 pg (27.5-34.5); MEAN CORPUSCULAR HGB CONC 33.3 g/dL (33.2-36.2); MEAN PLATELET VOLUME 8.6 fL (7.4-10.4); MONOCYTES % (AUTO) 9 % (2-9); NEUTROPHILS % (AUTO) 55 % (42-75); PLATELET COUNT 283 x10^3/uL (130-400); RED BLOOD COUNT 4.19 x10^6/uL (4.38-5.82); RED CELL DISTRIBUTION WIDTH 13.4 % (9.4-14.8)
[2021-07-08] MEDS: SUCRALFATE 1 GM/10 ML UDC PO SCH ×4 (06:23→20:32)
[2021-07-08 07:32] VITALS: BP 134/84
[2021-07-08] MEDS: MORPHINE SULFATE 4 MG/ML, 1ML IVPush PRN ×4 (08:40→21:00)
[2021-07-08] MEDS: ONDANSETRON 2MG/ML, 2ML IVPush PRN ×2 (08:47→17:36)
[2021-07-08] MEDS: DOCUSATE 100 MG CAPSULE PO SCH ×2 (10:04→20:33)
[2021-07-08] MEDS: FLUCONAZOLE 200 MG TABLET PO SCH (10:04)
[2021-07-08] MEDS: NICOTINE 14MG/24 HR PATCH.TD24 TD SCH (11:53)
[2021-07-08] MEDS ORDERED: ALUMINUM/MAG/SIMETHICONE 30 ML UDC PO PRN (12:00)
[2021-07-08] MEDS: FAMOTIDINE 20 MG TABLET PO SCH ×2 (12:43→20:33)
[2021-07-08] MEDS: NS + 40MEQ KCL 1,000 ML IV SCH (13:15)
[2021-07-08] MEDS ORDERED: OMNIPAQUE 350 MG/ML, 75ML BOTTLE ONE (13:45)
[2021-07-08 14:51] VITALS: BP 168/96
[2021-07-08 20:52] VITALS: BP 126/84
[2021-07-09 00:07] VITALS: BP 129/85
[2021-07-09] MEDS: MORPHINE SULFATE 4 MG/ML, 1ML IVPush PRN ×5 (00:07→22:01)
[2021-07-09] MEDS: CAPSAICIN CRM 0.075%, 60GM TP SCH ×4 (02:30→19:21)
[2021-07-09] MEDS: NYSTATIN 500,000 UNITS/5 ML UDC PO SCH ×4 (04:48→19:22)
[2021-07-09] MEDS: SUCRALFATE 1 GM/10 ML UDC PO SCH ×4 (06:19→21:36)
[2021-07-09 07:18] VITALS: BP 116/77
[2021-07-09] MEDS: DOCUSATE 100 MG CAPSULE PO SCH ×2 (09:39→21:36)
[2021-07-09] MEDS: FAMOTIDINE 20 MG TABLET PO SCH ×2 (09:39→21:36)
[2021-07-09] MEDS: ONDANSETRON 2MG/ML, 2ML IVPush PRN (09:40)
[2021-07-09] MEDS: FLUCONAZOLE 200 MG TABLET PO SCH (09:40)
[2021-07-09] MEDS ORDERED: SUCR1ORA5 PO (09:59)
[2021-07-09] MEDS ORDERED: FLUC200T PO (09:59)
[2021-07-09] MEDS: NICOTINE 14MG/24 HR PATCH.TD24 TD SCH (11:37)
[2021-07-09 13:38] VITALS: BP 133/88
[2021-07-09 19:07] VITALS: BP 144/90
[2021-07-10] MEDS: CAPSAICIN CRM 0.075%, 60GM TP SCH ×3 (01:20→12:48)
[2021-07-10 01:48] VITALS: BP 120/69
[2021-07-10] MEDS: NYSTATIN 500,000 UNITS/5 ML UDC PO SCH ×2 (04:49→09:08)
[2021-07-10] MEDS: SUCRALFATE 1 GM/10 ML UDC PO SCH ×2 (06:31→11:14)
[2021-07-10 08:18] VITALS: BP 115/81
[2021-07-10] MEDS: MORPHINE SULFATE 4 MG/ML, 1ML IVPush PRN ×2 (08:58→13:11)
[2021-07-10] MEDS: FLUCONAZOLE 200 MG TABLET PO SCH (08:59)
[2021-07-10] MEDS: DOCUSATE 100 MG CAPSULE PO SCH (08:59)
[2021-07-10] MEDS: FAMOTIDINE 20 MG TABLET PO SCH (08:59)
[2021-07-10] MEDS: ONDANSETRON 2MG/ML, 2ML IVPush PRN (09:08)
[2021-07-10] MEDS: NICOTINE 14MG/24 HR PATCH.TD24 TD SCH (11:14)
[2021-07-10 13:25] VITALS: BP 131/81
== END 2021-07-10 14:40 | disposition home health service (06) | DRG 853 ==
LOC: ED 22:26 → EDIP 06-20 01:41 → 4NW 06-20 02:49 → 3N 06-29 20:56 → 4NE 07-05 19:58
PROVIDERS: ADMIT Family Medicine; ATTEND Family Medicine
PROC: 0T9B70Z Drainage of Bladder with Drainage Device, Via Natural or Artificial Opening (ICD-10-PCS; 2021-06-20)
PROC: 02HV33Z Insertion of Infusion Device into Superior Vena Cava, Percutaneous Approach (ICD-10-PCS; 2021-06-25)
PROC: B548ZZA Ultrasonography of Superior Vena Cava, Guidance (ICD-10-PCS; 2021-06-25)
PROC: B5181ZA Fluoroscopy of Superior Vena Cava using Low Osmolar Contrast, Guidance (ICD-10-PCS; 2021-06-25)
PROC: 0WJB3ZZ Inspection of Left Pleural Cavity, Percutaneous Approach (ICD-10-PCS; 2021-07-03)
PROC: 0W9M0ZZ Drainage of Male Perineum, Open Approach (ICD-10-PCS; 2021-07-05)
PROC: 0V950ZZ Drainage of Scrotum, Open Approach (ICD-10-PCS; principal; 2021-07-05 17:00)
DX: A41.9 Sepsis, unspecified organism (principal); N17.0 Acute kidney failure with tubular necrosis; J18.9 Pneumonia, unspecified organism; E87.1 Hypo-osmolality and hyponatremia; E87.2 Acidosis; J90 Pleural effusion, not elsewhere classified; G82.20 Paraplegia, unspecified; N39.0 Urinary tract infection, site not specified; E44.0 Moderate protein-calorie malnutrition; F10.10 Alcohol abuse, uncomplicated; F12.90 Cannabis use, unspecified, uncomplicated; Y90.9 Presence of alcohol in blood, level not specified; L89.619 Pressure ulcer of right heel, unspecified stage; F17.210 Nicotine dependence, cigarettes, uncomplicated; Z20.822 Contact with and (suspected) exposure to COVID-19; B35.9 Dermatophytosis, unspecified; D64.9 Anemia, unspecified; E83.39 Other disorders of phosphorus metabolism; E83.42 Hypomagnesemia; E86.1 Hypovolemia; E87.6 Hypokalemia; F41.9 Anxiety disorder, unspecified; J06.9 Acute upper respiratory infection, unspecified; K59.00 Constipation, unspecified; L89.899 Pressure ulcer of other site, unspecified stage; N49.2 Inflammatory disorders of scrotum; T36.8X5A Adverse effect of other systemic antibiotics, initial encounter; Z86.14 Personal history of Methicillin resistant Staphylococcus aureus infection; Z99.3 Dependence on wheelchair; Z68.21 Body mass index [BMI] 21.0-21.9, adult; Z79.899 Other long term (current) drug therapy; Z88.8 Allergy status to other drugs, medicaments and biological substances
CPT/HCPCS: 32555; 36415; 36573; 71045; 71275; 72197; 74018; 74176; 76770; 76870; 78582; 80048; 80053; 80069; 80202; 81001; 82570; 82728; 83540; 83550; 83605; 83690; 83735; 84100; 84145; 84300; 84484; 84550; 85025; 85379; 85520; 85651; 86140; 87015; 87040; 87070; 87075; 87077; 87086; 87102; 87106; 87116; 87186; 87205; 87206; 87491; 87591; 87635; 93306; 93356; 93970; 96365; 96372; 96375; G0378; J0295; J0696; J1644; J1650; J1756; J1885; J2250; J2405; J2543; J2550; J2704; J3010; J3370; J3480; P9047; Q0164; Q9967; U0005; A9540; A9558; A9575; C1751; C9113; J2060; J2270; J3475; J7030; J7040; J7050; J7120; U0003